=== PATIENT | male | born 1990 | race Caucasian/White ===

== ENCOUNTER 2017-11-17 02:18 | Emergency (ER) | payer SELFPAY ==
[2017-11-17] MEDS ORDERED: NA CHLORIDE 0.9% 1,000 ML ONE (02:38)
[2017-11-17] MEDS ORDERED: KETOROLAC 30 MG/ML INJ ONE (02:38)
[2017-11-17] MEDS ORDERED: ONDANSETRON 4 MG/2 ML VIAL ONE (02:38)
[2017-11-17 02:48] LABS: Absolute Lymphocytes (CBC) 2.4 K/uL (0.7-4.9); Absolute Monocytes 0.6 K/uL (0.1-1.3); Absolute Neutrophil 3.2 K/uL (1.8-8.0); Basophils % 0.7 % (0-1.3); Eosinophils % 2.9 % (0-4.4); Hematocrit 46.2 % (39.6-49.0); Lymphocytes % 37.2 % (15.3-44.8); MCH 31.2 pg (27.0-35.0); MCV 91.2 fL (80-100); MPV 8.4 fL (7.6-11.3); Monocytes % 9.9 % (3.3-12.3); RBC Red Blood Cell Count 5.07 M/uL (4.33-5.43)
[2017-11-17 02:52] LABS: Bicarbonate 25 mEq/L (21-31); Glucose Level 112 mg/dL (65-120); Lipase 27 U/L (22-51); Potassium 3.9 mEq/L (3.6-5.0); Sodium Level 136 mEq/L (135-145)
[2017-11-17 02:58] LABS: ALT/SGPT 11 IU/L (10-60); AST/SGOT 16 IU/L (10-42); Albumin 3.9 g/dL (3.2-5.5); Alkaline Phosphatase 69 IU/L (42-121); Amylase Level 46 U/L (28-100); BUN Blood Urea Nitrogen 18 mg/dL (6-20); Bilirubin Direct 0.1 mg/dL (0-0.2); Bilirubin Total 0.7 mg/dL (0.3-1.2)
--- NOTE | 2017-11-17 06:56 | EDPHYS ---
Physician Documentation [facility] Name: Ron Wilson Age: 27 yrs Sex: Male : 1990 Arrival Date: 11/17/2017 Time: 02:19 Bed 17 Private MD: ED Physician Jose Enriquez HPI: 11/17 02:41 This 27 yrs old Male presents to ER via Unassigned with complaints of Flank tw4 Pain. 02:41 The patient complains of pain in the right low back. The pain radiates to the right tw4 lower quadrant. Onset: The symptoms/episode began/occurred last night. Modifying factors: The symptoms are alleviated by nothing. the symptoms are aggravated by movement. Associated signs and symptoms: Pertinent positives: nausea. Severity of pain: At its worst the pain was moderate in the emergency department the pain is unchanged. The patient has experienced a previous episode. Historical: - Allergies: 02:42 NKA; tl2 - Home Meds: 02:42 None [Active]; tl2 - PMHx: 02:42 Back pain; Hypertension; tl2 - Immunization history:: Adult Immunizations up to date. - Social history:: Smoking status: Patient uses tobacco products, smokes one-half pack cigarettes per day. - Ebola Screening: : No symptoms or risks identified at this time. ROS: 02:41 Constitutional: Negative for fever, chills, and weight loss, Cardiovascular: Negative tw4 for chest pain, palpitations, and edema, Respiratory: Negative for shortness of breath, cough, wheezing, and pleuritic chest pain, Abdomen/GI: Negative for abdominal pain, nausea, vomiting, diarrhea, and constipation. 02:41 MS/Extremity: Negative for injury and deformity, Skin: Negative for injury, rash, and discoloration, Neuro: Negative for headache, weakness, numbness, tingling, and seizure. 02:41 Back: Positive for flank pain, on the right, radiated pain. Exam: 02:41 Constitutional: This is a well developed, well nourished patient who is awake, alert, tw4 and in no acute distress. Head/Face: Normocephalic, atraumatic. Chest/axilla: Normal chest wall appearance and motion. Nontender with no deformity. No lesions are appreciated. Cardiovascular: Regular rate and rhythm with a normal S1 and S2. No gallops, murmurs, or rubs. Normal PMI, no JVD. No pulse deficits. Respiratory: Lungs have equal breath sounds bilaterally, clear to auscultation and percussion. No rales, rhonchi or wheezes noted. No increased work of breathing, no retractions or nasal flaring. Abdomen/GI: Soft, non-tender, with normal bowel sounds. No distension or tympany. No guarding or rebound. No evidence of tenderness throughout. MS/ Extremity: Pulses equal, no cyanosis. Neurovascular intact. Full, normal range of motion. Neuro: Awake and alert, GCS 15, oriented to person, place, time, and situation. Cranial nerves II-XII grossly intact. Motor strength 5/5 in all extremities. Sensory grossly intact. Cerebellar exam normal. Normal gait. Vital Signs: 02:42 BP 152 / 100; Pulse 70; Resp 20; Temp 97.5(O); Pulse Ox 97% on R/A; Weight 83.91 kg; tl2 Height 6 ft. 0 in. (182.88 cm); Pain 10/10; 04:12 BP 128 / 77; Pulse 60; Resp 18; Pulse Ox 98% on R/A; Pain 0/10; ea 04:50 BP 128 / 71; Pulse 70; Resp 17; Pulse Ox 98% on R/A; mw2 06:52 BP 113 / 80; Pulse 79; Resp 17; Pulse Ox 99% on R/A; mw2 02:42 Body Mass Index 25.09 (83.91 kg, 182.88 cm) tl2 MDM: 02:20 Patient medically screened. tw4 07:45 Differential diagnosis: nephrolithiasis, pyelonephritis. Data reviewed: vital signs, tw4 nurses notes. Counseling: I had a detailed discussion with the patient and/or guardian regarding: the historical points, exam findings, and any diagnostic results supporting the discharge/admit diagnosis. Medication response: Toradol relieved patient's pain. The symptoms have resolved. Response to treatment: the patient's symptoms have markedly improved after treatment. Special discussion: I discussed with the patient/guardian in detail that at this point there is no indication for admission to the hospital. It is understood, however, that if the symptoms persist or worsen the patient needs to return immediately for re-evaluation. ED course: Pt states he felt better after receiving Toradol. CT reveals 3 mm renal calculus with mild hydronephrosis. Will send pt home with po pain meds. Pt instructed to follow up as needed. 11/17 02:21 Order name: Amylase, Serum 11/17 02:21 Order name: Basic Metabolic Panel 11/17 02:21 Order name: CBC with Diff; Complete Time: 05:39 tw4 11/17 05:39 Interpretation: Normal except: RDW 11.8. 11/17 02:21 Order name: Creatinine for Radiology; Complete Time: 05:39 tw4 11/17 02:21 Order name: Hepatic Function; Complete Time: 05:39 tw4 11/17 05:39 Interpretation: Normal except: GLOB 2.1; A/G 1.9. 11/17 02:21 Order name: Lipase; Complete Time: 05:39 tw4 11/17 02:21 Order name: IV Saline Lock; Complete Time: 02:33 tw4 11/17 02:21 Order name: Labs collected and sent; Complete Time: 02:34 tw4 11/17 02:21 Order name: Amylase Level; Complete Time: 05:39 EDMS 11/17 05:39 Interpretation: Within normal limits: JUAN 46. 11/17 02:21 Order name: Basic Metabolic Panel; Complete Time: 05:39 EDMS 11/17 05:40 Interpretation: Abnormal. 11/17 02:44 Order name: CT Stone Protocol tw4 Administered Medications: 02:48 Drug: NS 0.9% 1000 ml Route: IV; Rate: 1 bolus; Site: right antecubital; tl2 07:04 Follow up: Response: No adverse reaction; IV Status: Completed infusion; IV Intake: ea 1000ml 02:48 Drug: TORadol 30 mg Route: IVP; Site: right antecubital; tl2 03:50 Follow up: Response: No adverse reaction; Pain is decreased ea Disposition: 11/17/17 06:55 Discharged to Home. Impression: Calculus of lower urinary tract, unspecified. - Condition is Stable. - Discharge Instructions: Kidney Stones, [id number]. - Prescriptions for Ibuprofen 800 mg Oral Tablet - take 1 tablet by ORAL route every 8 hours As needed take with food; 30 tablet. Tylenol- Codeine #3 300-30 mg Oral Tablet - take 2 tablet by ORAL route every 6 hours As needed; 6 tablet. - Medication Reconciliation Form, Thank You Letter, Antibiotic Education, Prescription Opioid Use form. - Follow up: Private Physician; When: As needed; Reason: Recheck today's complaints, Continuance of care, Re-evaluation by your physician. Follow up: Callum Alas MD; When: As needed; Reason: Recheck today's complaints, Continuance of care, Re-evaluation by your physician. - Problem is new. - Symptoms have improved. Signatures: Dispatcher [employer] EDMS John Gongora, CRANE FOLLOWER CRANE FOLLOWER em Desi Oates RN RN tl2 Jose Enriquez MD MD tw4 Fiona Agrawal RN ea Corrections: (The following items were deleted from the chart) 05:40 05:40 Within normal limits. tw4 tw4 06:56 06:55 11/17/2017 06:55 Discharged to Home. Impression: Calculus of lower urinary tract, tw4 unspecified. Condition is Stable. Forms are Medication Reconciliation Form, Thank You Letter, Antibiotic Education, Prescription Opioid Use. Follow up: Private Physician; When: As needed; Reason: Recheck today's complaints, Continuance of care, Re-evaluation by your physician. Problem is new. Symptoms have improved. tw4 07:20 02:21 Urine Dipstick-Ancillary ordered. tw4 em 07:21 06:56 11/17/2017 06:55 Discharged to Home. Impression: Calculus of lower urinary tract, em unspecified. Condition is Stable. Discharge Instructions: Kidney Stones, [id number]-[id number]. Prescriptions for Ibuprofen 800 mg Oral Tablet - take 1 tablet by ORAL route every 8 hours As needed take with food; 30 tablet, Tylenol-Codeine #3 300-30 mg Oral Tablet - take 2 tablet by ORAL route every 6 hours As needed; 6 tablet. and Forms are Medication Reconciliation Form, Thank You Letter, Antibiotic Education, Prescription Opioid Use. Follow up: Private Physician; When: As needed; Reason: Recheck today's complaints, Continuance of care, Re-evaluation by your physician. Follow up: Callum Alas; When: As needed; Reason: Recheck today's complaints, Continuance of care, Re-evaluation by your physician. Problem is new. Symptoms have improved. tw4
--- NOTE | 2017-11-17 06:56 | ER ---
Nurse's Notes [facility] Name: Ron Wilson Age: 27 yrs Sex: Male : 1990 Arrival Date: 11/17/2017 Time: 02:19 Bed 17 Private MD: Diagnosis: Calculus of lower urinary tract, unspecified Presentation: 11/17 02:41 Presenting complaint: Patient states: right flank pain that radiates to lower abdomen tl2 since yesterday. Pt states pain went away this afternoon but came back suddenly around 8 PM. Denies any pain when urinating. Transition of care: patient was not received from another setting of care. Onset of symptoms was November 16, 2017. Risk Assessment: Do you want to hurt yourself or someone else? Patient reports no desire to harm self or others. Initial Sepsis Screen: Does the patient meet any 2 criteria? No. Patient's initial sepsis screen is negative. Does the patient have a suspected source of infection? No. Patient's initial sepsis screen is negative. Care prior to arrival: None. 02:41 Method Of Arrival: Ambulatory tl2 02:41 Acuity: JENNY 3 tl2 Triage Assessment: 02:42 General: Appears in no apparent distress. uncomfortable, Behavior is cooperative, tl2 appropriate for age, anxious, restless. Pain: Complains of pain in right flank Pain radiates to abdomen Pain currently is 10 out of 10 on a pain scale. Quality of pain is described as sharp. Neuro: Level of Consciousness is awake, alert, obeys commands, Oriented to person, place, time, situation. Cardiovascular: Denies chest pain. Respiratory: Airway is patent Respiratory effort is even, unlabored, Respiratory pattern is regular, symmetrical. GI: Reports nausea. : Reports. Derm: Skin is pink, warm \T\ dry. Historical: - Allergies: 02:42 NKA; tl2 - Home Meds: 02:42 None [Active]; tl2 - PMHx: 02:42 Back pain; Hypertension; tl2 - Immunization history:: Adult Immunizations up to date. - Social history:: Smoking status: Patient uses tobacco products, smokes one-half pack cigarettes per day. - Ebola Screening: : No symptoms or risks identified at this time. Screenin:47 Abuse screen: Denies threats or abuse. Nutritional screening: No deficits noted. tl2 Tuberculosis screening: No symptoms or risk factors identified. Fall Risk None identified. Assessment: 02:47 General: see triage assessment. tl2 03:50 Reassessment: Patient and/or family updated on plan of care and expected duration. Pain ea level reassessed. Pt resting with eyes closed, respirations even and unlabored. Chest expansions even and symmetrical. No s/s of pain or discomfort noted at this time. Mother reports she has to leave for a few minutes, Irina Wilson [phone]. 04:50 Reassessment: Patient and/or family updated on plan of care and expected duration. Pain ea level reassessed. pt resting with eyes closed, respirations even and unlabored, chest expansions even and symmetrical. No s/s of pain or discomfort noted at this time. 05:50 Reassessment: pt resting with eyes closed respirations even and unlabored chest ea expansions even and symmetrical. No s/s of pain or discomfort noted at this time. 06:55 Reassessment: Patient and/or family updated on plan of care and expected duration. Pain ea level reassessed. Patient is alert, oriented x 3, equal unlabored respirations, skin warm/dry/pink. Patient states feeling better. Patient states symptoms have improved. Vital Signs: 02:42 BP 152 / 100; Pulse 70; Resp 20; Temp 97.5(O); Pulse Ox 97% on R/A; Weight 83.91 kg; tl2 Height 6 ft. 0 in. (182.88 cm); Pain 10/10; 04:12 BP 128 / 77; Pulse 60; Resp 18; Pulse Ox 98% on R/A; Pain 0/10; ea 04:50 BP 128 / 71; Pulse 70; Resp 17; Pulse Ox 98% on R/A; mw2 06:52 BP 113 / 80; Pulse 79; Resp 17; Pulse Ox 99% on R/A; mw2 02:42 Body Mass Index 25.09 (83.91 kg, 182.88 cm) tl2 ED Course: 02:19 Patient arrived in ED. am2 02:20 Jose nEriquez MD is Attending Physician. tw4 02:42 Triage completed. tl2 02:42 Arm band placed on right wrist. tl2 02:47 Patient has correct armband on for positive identification. Placed in gown. Bed in low tl2 position. Call light in reach. Side rails up X 1. Adult w/ patient. 02:47 No provider procedures requiring assistance completed. Inserted saline lock: 20 gauge tl2 in right antecubital area, using aseptic technique. Blood collected. 02:[address] via wheelchair. kw1 03:07 CT Stone Protocol In Process Unspecified. EDMS 03:07 CT completed. Patient tolerated procedure well. Patient moved back from [place]. kw1 04:09 Fiona Agrawal, RN is Primary Nurse. ea 06:56 Callum Alas MD is Referral Physician. tw4 07:20 IV discontinued, intact, bleeding controlled, No redness/swelling at site. Pressure em dressing applied. Administered Medications: 02:48 Drug: NS 0.9% 1000 ml Route: IV; Rate: 1 bolus; Site: right antecubital; tl2 07:04 Follow up: Response: No adverse reaction; IV Status: Completed infusion; IV Intake: ea 1000ml 02:48 Drug: TORadol 30 mg Route: IVP; Site: right antecubital; tl2 03:50 Follow up: Response: No adverse reaction; Pain is decreased ea Intake: 07:04 IV: 1000ml; Total: 1000ml. ea Outcome: 06:55 Discharge ordered by . tw4 06:58 Condition: improved ea 07:20 Discharged to home ambulatory. em 07:20 Condition: good 07:20 Discharge instructions given to patient, Instructed on discharge instructions, follow up and referral plans. no drinking with medication, no driving heavy equipment, medication usage, Demonstrated understanding of instructions, follow-up care, medications, Prescriptions given X 2. 07:21 Patient left the ED. em Signatures: Dispatcher [employer] EDAZ John Gongora, COMPUTER SCIENTIST COMPUTER SCIENTIST em Desi Oates RN RN tl2 Cady Walters am2 Fiona Agrawal RN RN ea Wilhelm, Kimberly kw1 Jose Enriquez MD MD tw4 Liv Pedroza mw2 Corrections: (The following items were deleted from the chart) 04:14 03:50 Reassessment: Patient and/or family updated on plan of care and expected ea duration. Pain level reassessed. Pt resting with eyes closed, respirations even and unlabored. Chest expansions even and symmetrical. No s/s of pain or discomfort noted at this time. ea
[2017-11-17 07:25] VITALS: TEMP 97.5
[2017-11-17 07:28] VITALS: BP 113/80; O2SAT 99
--- NOTE | 2017-11-17 08:49 | RAD REPORT ---
EXAM DESCRIPTION: CT - Stone Protocol - 11/17/2017 7:36 am CLINICAL HISTORY: Abdominal pain, flank pain A preliminary written report was provided at the time of the study, and the report was reviewed prio r to final dictation. COMPARISON: None. TECHNIQUE: Axial 5 mm thick images were obtained without oral or IV contrast. The [id number] span s the entirety of the system including uppermost abdomen and lung bases. All CT scans are performed using dose optimization technique as appropriate and may include automated exposure control or mA/KV adjustment according to patient size. FINDINGS: Mild right-sided hydronephrosis is present secondary to a 3 millimeter distal right ureter al calculus. This is approximately 3 cm from the UVJ. No left-sided hydronephrosis. No other obstruct ing or nonobstructing calculi. Right kidney is minimally edematous. No suspicious renal masses. Isode nse masses and pyelonephritis are not excluded on a stone protocol CT scan. Partially filled urinary bladder shows no suspicious finding. Prostate calcifications are present. No seminal vesicle abnormal ity. Imaged portions of the liver, spleen and pancreas show no suspicious findings on non-contrast imaging . Gallbladder is contracted. No biliary tree dilatation. No significant adrenal finding. Large amount of food fills the stomach. No acute stomach finding. No acute large or small bowel findi ng. No hernia, mass or bulky lymphadenopathy noted. No free air, free fluid or inflammatory stranding. Bilateral gynecomastia is present. Calcified granuloma seen in the lower lung jean baptiste. The lumbar spin e shows fusion hardware spanning L2-L4. Old L3 burst fracture noted. No active process. IMPRESSION: Mild right-sided hydronephrosis secondary to a 3 mm distal right ureteral calculus appro ximately 3 cm from the UVJ. Additional nonacute findings detailed in the body of the report. Isodense masses and pyelonephritis are not excluded on stone protocol technique.
== END 2017-11-17 07:21 | disposition home or self-care (01) ==
LOC: ER 02:18
DX: N21.9 Calculus of lower urinary tract, unspecified (principal); I10 Essential (primary) hypertension; F17.210 Nicotine dependence, cigarettes, uncomplicated
CPT/HCPCS: 36415; 74176; 76377; 80048; 80076; 82150; 83690; 85025; 96361; 96374; 99284; J2405; J7030

== ENCOUNTER 2019-04-06 19:02 | Emergency (ER) | payer SELFPAY ==
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
--- NOTE | 2019-04-06 20:56 | RAD REPORT ---
EXAM DESCRIPTION: RAD - Lumbar Spine 3 Views - 04/06/2019 8:24 pm CLINICAL HISTORY: Back pain, history of lumbar fracture repair COMPARISON: CT imaging November 2017 FINDINGS: A three-view lumbar spine examination was performed. Approximately 40% old compression fra cture of the L3 body is noted. Pedicle screws and rods are in place in the L2 and L4 bodies spanning the fracture. No change to the fracture hardware since November 2017. No new L3 vertebral body finding se en. Remaining lumbar bodies are normal in height. No alignment changes. Slight left convex curvature of the lumbar spine is present similar to prior imaging. No new fracture change. No new or progressiv e disc space narrowing. No pars defects identified. IMPRESSION: Old L3 fracture with fixation hardware in place. No acute lumbar spine finding.
[2019-04-06] MEDS ORDERED: dexAMETHasone 10 MG/ML VIAL ONE (21:26)
[2019-04-06] MEDS ORDERED: KETOROLAC 30 MG/ML INJ ONE (21:26)
[2019-04-06 22:16] VITALS: BP 138/88; O2SAT 97
== END 2019-04-06 22:12 | disposition home or self-care (01) ==
LOC: ER 19:02
DX: M54.5 Low back pain (principal); I10 Essential (primary) hypertension; E10.9 Type 1 diabetes mellitus without complications; Z72.0 Tobacco use
CPT/HCPCS: 72100; 96372; 99284; J1100

== ENCOUNTER 2019-04-07 11:29 | Emergency (ER) | payer SELFPAY ==
[2019-04-07] MEDS ORDERED: HYDROCODONE/APAP 10/325 TAB ONE (12:42)
--- NOTE | 2019-04-07 13:15 | RAD REPORT ---
EXAM DESCRIPTION: CTSpine Lumbar Wo Con04/07/2019 12:54 pm CLINICAL HISTORY: Back injury with back pain. Lumbar fracture COMPARISON: 2018 TECHNIQUE: Computed axial tomography lumbar spine was obtained with coronal and sagittal reconstruct ion. All CT scans are performed using dose optimization technique as appropriate and may include automated exposure control or mA/KV adjustment according to patient size. FINDINGS: Pedicular screws united by rods have Been placed from L2-L4. A moderate old compression fracture involves the L3 vertebral body which is without significant mathews e from 2018 exam. Minimal anterior subluxation of L2 on L3 is unchanged. Artifact from the hardware obscures evaluation of portions of the lumbar spine. Spondylosis L2-3 results in borderline narrowing of the thecal sac Spondylosis L3-4 results in narrowing of the thecal sac to 9 millimeters. Small left lateral disc her niation. Moderate narrowing left neural foramina Mild posterior subluxation L4 on L5. Disc bulge and osteophytes L5-S1. Thecal sac measures 11 millimeters IMPRESSION: Moderate old compression fracture involves the L3 vertebral body Pedicular screws united by rods have been placed from L2 and L4 Spondylosis L3-4 with small left lateral disc herniation resulting in mild central spinal stenosis an d moderate left foraminal stenosis
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
--- NOTE | 2019-04-07 15:29 | EDPHYS ---
Physician Documentation [facility] Name: Ron Wilson Age: 28 yrs Sex: Male : 1990 Arrival Date: 04/07/2019 Time: 11:33 Bed 17 Private MD: ED Physician Rafat Johnson HPI: 04/07 13:43 This 28 yrs old Male presents to ER via [employer] with complaints of gs Back Pain. 13:43 The patient presents with pain that is chronic. The symptoms are located in the low gs back. Onset: The symptoms/episode began/occurred 5 day(s) ago, and became worse. The pain radiates to the lateral aspect of right thigh. Associated signs and symptoms: Pertinent positives: tingling. Modifying factors: the patient symptoms are aggravated by any movement. Severity of symptoms: At their worst the symptoms were severe, in the emergency department the symptoms are unchanged. The patient has experienced similar episodes in the past, multiple times. Historical: - Allergies: 11:43 NKA; ss - Home Meds: 11:43 Tylenol #3 Oral [Active]; ss - PMHx: 11:43 Back pain; Hypertension; ss - PSHx: 11:43 back sx; ss - Immunization history:: Adult Immunizations up to date. - Social history:: Smoking status: Patient uses tobacco products, smokes one-half pack cigarettes per day. - Ebola Screening: : Patient denies exposure to infectious person Patient denies travel to an Ebola-affected area in the 21 days before illness onset. ROS: 13:43 All other systems are negative. gs Exam: 13:43 Constitutional: The patient appears alert, awake. gs 15:21 Head/Face: Normocephalic, atraumatic. Eyes: Pupils equal round and reactive to light, gs extra-ocular motions intact. Lids and lashes normal. Conjunctiva and sclera are non-icteric and not injected. Cornea within normal limits. Periorbital areas with no swelling, redness, or edema. ENT: Nares patent. No nasal discharge, no septal abnormalities noted. Tympanic membranes are normal and external auditory canals are clear. Oropharynx with no redness, swelling, or masses, exudates, or evidence of obstruction, uvula midline. Mucous membranes moist. Neck: Trachea midline, no thyromegaly or masses palpated, and no cervical lymphadenopathy. Supple, full range of motion without nuchal rigidity, or vertebral point tenderness. No Meningismus. Chest/axilla: Normal chest wall appearance and motion. Nontender with no deformity. No lesions are appreciated. Cardiovascular: Regular rate and rhythm with a normal S1 and S2. No gallops, murmurs, or rubs. Normal PMI, no JVD. No pulse deficits. Respiratory: Lungs have equal breath sounds bilaterally, clear to auscultation and percussion. No rales, rhonchi or wheezes noted. No increased work of breathing, no retractions or nasal flaring. Abdomen/GI: Soft, non-tender, with normal bowel sounds. No distension or tympany. No guarding or rebound. No evidence of tenderness throughout. Back: No spinal tenderness. No costovertebral tenderness. Full range of motion. Skin: Warm, dry with normal turgor. Normal color with no rashes, no lesions, and no evidence of cellulitis. MS/ Extremity: Pulses equal, no cyanosis. Neurovascular intact. Full, normal range of motion. 15:21 Neuro: Orientation: is normal, Mentation: is normal, Memory: is normal, Cranial nerves: CN II- XII are normal as tested, Cerebellar function: no acute changes, Motor: strength is 4/5 in the right leg and left leg, Sensation: pin prick testing is normal. Vital Signs: 11:38 BP 119 / 82; Pulse 92; Resp 16; Temp 97.5(TE); Pulse Ox 98% on R/A; Weight 82.55 kg; ss Height 5 ft. 11 in. (180.34 cm); Pain 7/10; 14:52 BP 135 / 83; Pulse 102; Resp 17; Temp 97.7(O); Pulse Ox 96% ; mh5 11:38 Body Mass Index 25.38 (82.55 kg, 180.34 cm) MDM: 12:03 Patient medically screened. gs 15:21 Differential diagnosis: chronic back pain, Ligament Injury ruptured disc, spinal gs injury. Data reviewed: vital signs, nurses notes. Response to treatment: the patient's symptoms have worsened after treatment, says has lost feeling in legs, lost sharp touch on exam will transfer. 04/07 12:36 Order name: CT Lumbar Spine Wo Con; Complete Time: 13:19 gs Administered Medications: 12:45 Drug: [place] 10 mg-325 mg 1 tabs Route: PO; em 13:57 Follow up: Response: No adverse reaction; Pain is unchanged, physician notified em Disposition: 04/07/19 15:28 Transfer ordered to [facility]. Diagnosis is Cauda equina syndrome. - Reason for transfer: Higher level of care. - Accepting physician is poncho. - Condition is Stable. - Problem is new. - Symptoms are unchanged. Signatures: Dispatcher [employer] EDWV John Gongora, FLEXBOARD OPERATOR FLEXBOARD OPERATOR em Janet Anderson RN RN ss Rafat Johnson MD MD gs Corrections: (The following items were deleted from the chart) 17:22 15:28 04/07/2019 15:28 Transfer ordered to [facility]. Diagnosis is Cauda equina em syndrome. Reason for transfer: Higher level of care. Accepting physician is hayesvillegaby. Condition is Stable. Problem is new. Symptoms are unchanged.
[2019-04-07 17:31] VITALS: BP 135/83; TEMP 97.7; O2SAT 96
== END 2019-04-07 17:22 | disposition short-term general hospital (02) ==
LOC: ER 11:29
DX: G83.4 Cauda equina syndrome (principal); I10 Essential (primary) hypertension; F17.210 Nicotine dependence, cigarettes, uncomplicated
CPT/HCPCS: 72131; 99285

== ENCOUNTER 2019-09-02 11:23 | Emergency (ER) | payer SELFPAY ==
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
--- OUTSIDE RECORDS SUMMARY | 2019-09-02 11:26 | XMS REPORT ---
:1990 [facility] Address [address] [place] [address] Care Team Providers Name Role Phone Unavailable Unavailable Unavailable Problems This patient has no known problems. Allergies, Adverse Reactions, Alerts This patient has no known allergies or adverse reactions. Medications This patient has no known medications.
[2019-09-02] MEDS ORDERED: MORPHINE 2 MG/ML SYR ONE (12:14)
[2019-09-02] MEDS ORDERED: ASPIRIN 81 MG CHEWABLE TABLET ONE (12:14)
--- NOTE | 2019-09-02 12:28 | RAD REPORT ---
EXAM DESCRIPTION: RAD - Chest Single View - 09/02/2019 12:17 pm CLINICAL HISTORY: CHEST PAIN, left side COMPARISON: None TECHNIQUE: AP portable chest image was obtained 09/02/2019 12:17 pm . FINDINGS: No suspicious peripheral mass or consolidation. Small granuloma seen lateral right lung ba se. Interstitial pattern is minimally prominent with the baseline the patient unknown. In this settin g, a minimal interstitial edema or infiltrate pattern could be present. No hilar abnormality seen. He art and vasculature are normal. No measurable pleural effusion and no pneumothorax. No acute bony abn ormality seen. No acute aortic findings suspected. IMPRESSION: No focal mass or consolidation. Interstitial pattern is mildly prominent on this baseline study. This can be baseline for the patient or a mild interstitial edema or infiltrate.
[2019-09-02 12:54] LABS: Absolute Lymphocytes (CBC) 1.6 K/uL (0.7-4.9); Basophils % 0.7 % (0-1.3); Hematocrit 48.9 % (39.6-49.0); Lymphocytes % 30.3 % (15.3-44.8); MPV 8.6 fL (7.6-11.3); Protime INR 1.02; RBC Red Blood Cell Count 5.38 M/uL (4.33-5.43)
[2019-09-02 13:41] LABS: ALT/SGPT 23 U/L (12-78); AST/SGOT 19 U/L (15-37); Albumin 3.7 g/dL (3.4-5.0); Alkaline Phosphatase 70 U/L (45-117); BUN Blood Urea Nitrogen 11 mg/dL (7-18); Bicarbonate 27 mmol/L (21-32); Bilirubin Direct 0.2 mg/dL (0-0.2); Bilirubin Total 0.7 mg/dL (0.2-1.0); Glucose Level 84 mg/dL (74-106); Magnesium 2.2 mg/dL (1.8-2.4); NT PRO-BNP 11 pg/mL (<125); Potassium 3.9 mmol/L (3.5-5.1); Sodium Level 140 mmol/L (136-145); Troponin (Emerg Dept Use Only) < 0.02 ng/mL (0.0-0.045)
--- NOTE | 2019-09-02 14:10 | EKG ---
Test Date: 2019-09-02 Test Time: 11:56:36 Hair Preparer: GOOD MEASUREMENT RESULTS: Intervals: Rate: 101 OR: 130 QRSD: 90 QT: 328 QTc: 425 Rippey: P: 61 OR: 130 QRS: 69 T: 47 INTERPRETIVE STATEMENTS: Sinus tachycardia Otherwise normal ECG Compared to ECG 05/14/2015 20:43:11 Sinus rhythm no longer present Sinus arrhythmia no longer present Electronically Signed On 09-02-19 14:10:09 CDT by Wilian Mckoy
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
[2019-09-02] MEDS ORDERED: NA CHLORIDE 0.9% 1,000 ML ONE (15:05)
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
--- NOTE | 2019-09-02 15:48 | EDPHYS ---
Physician Documentation [facility] Name: Ron Wilson Age: 28 yrs Sex: Male : 1990 Arrival Date: 09/02/2019 Time: 11:25 Bed 20 Private MD: ED Physician John Hall HPI: 09/01 12:00 This 28 yrs old Male presents to ER via Ambulatory with complaints of Chest cp Pain, Back Pain. 12:00 The patient or guardian reports chest pain that is located primarily in the anterior cp chest wall, left. The pain does not radiate. 12:00 Associated signs and symptoms: Pertinent negatives: abdominal pain, diaphoresis, cp dizziness, lower extremity swelling, lightheadedness, shortness of breath, syncope. The chest pain is described as a pressure. 12:00 Duration: The patient or guardian reports multiple episodes, that are intermittent, cp with no pattern. 12:03 Patient also c/o lower back pain and reports history of chronic back pain since cp sustaining lumbar fracture that required lumbar fusion. Patient reports pain in different location of lower back. Denies change in bowel or bladder function, denies change in paresthesias of right calf area, denies saddle anesthesia, denies weakness of lower extremities. Historical: - Allergies: 11:51 NKA; ca1 - Home Meds: 11:51 unknown BP med [Active]; ca1 - PMHx: 11:51 Back pain; Hypertension; juvenile DM; ca1 - PSHx: 11:51 back sx; ca1 - Immunization history:: Adult Immunizations up to date, Flu vaccine is up to date. - Social history:: Smoking status: Patient reports the use of cigarette tobacco products, smokes one-half pack cigarettes per day. ROS: 12:07 Constitutional: Negative for body aches, chills, fever, poor PO intake. cp 12:07 Eyes: Negative for injury, pain, redness, and discharge. cp 12:07 ENT: Negative for drainage from ear(s), ear pain, sore throat, difficulty swallowing, difficulty handling secretions. 12:07 Cardiovascular: Positive for chest pain, of the anterior aspect of left upper chest, Negative for edema, palpitations. 12:07 Respiratory: Negative for cough, shortness of breath, wheezing. 12:07 Abdomen/GI: Negative for abdominal pain, nausea, vomiting, and diarrhea, constipation, black/tarry stool, rectal bleeding, change in bowel habits. 12:07 Back: Positive for pain at rest, pain with movement, of the right low back, Negative for injury or acute deformity. 12:07 : Negative for urinary symptoms, difficulty urinating, bladder incontinence, testicular pain 12:07 Neuro: Negative for change in paresthesias of right leg. 12:07 All other systems are negative. Exam: 12:05 ECG was reviewed by the Attending Physician. cp 12:10 Constitutional: The patient appears in no acute distress, alert, awake, cp non-diaphoretic, non-toxic, well developed, well nourished. 12:10 Head/Face: Normocephalic, atraumatic. cp 12:10 Eyes: Periorbital structures: appear normal, Conjunctiva: normal, no exudate, no injection, Lids and lashes: appear normal, bilaterally. 12:10 ENT: External ear(s): are unremarkable, Nose: is normal, Mouth: is normal, Posterior pharynx: is normal, airway is patent, no erythema, no exudate. 12:10 Neck: ROM/movement: is normal, is supple, without pain, no range of motions limitations. 12:10 Chest/axilla: Inspection: normal, Palpation: is normal, no crepitus, no tenderness. 12:10 Cardiovascular: Rate: tachycardic, Rhythm: regular, Heart sounds: murmur, not appreciated, Edema: is not appreciated, JVD: is not appreciated. 12:10 Respiratory: the patient does not display signs of respiratory distress, Respirations: normal, no use of accessory muscles, no retractions, labored breathing, is not present, Breath sounds: are clear throughout, no decreased breath sounds, no wheezing. 12:10 Abdomen/GI: Inspection: abdomen appears normal, Bowel sounds: active, all quadrants, Palpation: abdomen is soft and non-tender, in all quadrants, rebound tenderness, is not appreciated, voluntary guarding, is not appreciated, involuntary guarding, is not appreciated. 12:10 Back: pain, that is moderate, of the right low back, ROM is normal, Straight leg raises: of both lower extremities does not illicit pain. 12:10 Skin: no rash present. 12:10 Neuro: Orientation: is normal, Mentation: is normal, Motor: no acute changes, moves all fours, Sensation: no acute changes, Deep tendon reflexes are 1 (trace) + in the right patellar, right Achilles, left patellar and left Achilles. Vital Signs: 11:46 BP 142 / 88; Pulse 105; Resp 16 S; Temp 98(O); Pulse Ox 100% on R/A; Weight 92.99 kg ca1 (R); Height 5 ft. 11 in. (180.34 cm) (R); Pain 7/10; 12:55 BP 143 / 90; Pulse 88; Resp 18 S; Pulse Ox 100% on R/A; ca1 13:50 BP 155 / 93; Pulse 103; Resp 19 S; Pulse Ox 100% on R/A; ca1 14:57 BP 136 / 96; Pulse 86; Resp 16 S; Pulse Ox 99% on R/A; ca1 16:00 BP 147 / 96; Pulse 97; Resp 20 S; Pulse Ox 100% on R/A; ca1 11:46 Body Mass Index 28.59 (92.99 kg, 180.34 cm) ca1 MDM: 11:45 Patient medically screened. cp 12:30 Differential diagnosis: abnormal EKG, acute myocardial infarction, acute pericarditis, cp chest wall pain, costochondritis, pancreatitis, pneumonia, pneumothorax, pulmonary embolus. 15:45 Data reviewed: vital signs, nurses notes, lab test result(s), EKG, radiologic studies, cp CT scan, plain films. 15:45 Test interpretation: by ED physician or midlevel provider: ECG, plain radiologic cp studies. Counseling: I had a detailed discussion with the patient and/or guardian regarding: the historical points, exam findings, and any diagnostic results supporting the discharge/admit diagnosis, lab results, radiology results, the need for outpatient follow up, a family practitioner, to return to the emergency department if symptoms worsen or persist or if there are any questions or concerns that arise at home. 09/01 12:00 Order name: Basic Metabolic Panel; Complete Time: 13:58 cp 09/01 13:58 Interpretation: Normal except: CL 108; CA 8.3. cp 09/01 12:00 Order name: CBC with Diff; Complete Time: 13:58 cp 09/01 12:00 Order name: LFT's; Complete Time: 13:58 cp 09/01 12:00 Order name: Magnesium; Complete Time: 13:58 cp 09/01 12:00 Order name: NT PRO-BNP; Complete Time: 13:58 cp 09/01 12:00 Order name: PT-INR; Complete Time: 13:58 cp 09/01 12:00 Order name: Troponin (emerg Dept Use Only); Complete Time: 13:58 cp 09/01 12:00 Order name: XRAY Chest (1 view); Complete Time: 13:58 cp 09/01 13:59 Order name: CT Stone Protocol; Complete Time: 15:15 cp 09/01 12:00 Order name: EKG; Complete Time: 12:01 cp 09/01 12:00 Order name: Cardiac monitoring; Complete Time: 12:08 cp 09/01 12:00 Order name: EKG - Nurse/Tech; Complete Time: 12:08 cp 09/01 12:00 Order name: IV Saline Lock; Complete Time: 12:17 cp 09/01 12:00 Order name: Labs collected and sent; Complete Time: 12:08 cp 09/01 12:00 Order name: O2 Per Protocol; Complete Time: 12:08 cp 09/01 12:00 Order name: O2 Sat Monitoring; Complete Time: 12:08 cp 09/01 12:17 Order name: Labs - recollect needed; Complete Time: 12:31 bd EC:05 Rate is 101 beats/min. Rhythm is regular. MA interval is normal. QRS interval is cp normal. QT interval is normal. Interpreted by me. Reviewed by me. Administered Medications: 12:11 Drug: Aspirin Chewable Tablet 324 mg Route: PO; ca1 13:00 Follow up: Response: No adverse reaction ca1 12:31 Drug: morphine 2 mg {Note: rass - 0.} Route: IVP; Site: left antecubital; ca1 13:30 Follow up: Response: No adverse reaction; Pain is decreased; RASS: Alert and Calm (0) ca1 15:03 Drug: NS 0.9% 1000 ml Route: IV; Rate: 1 bolus; Site: left antecubital; ca1 16:00 Follow up: Response: No adverse reaction; IV Status: Completed infusion ca1 Disposition: 16:09 Co-signature as Attending Physician, John Hall MD. rn Disposition: 09/02/19 15:46 Discharged to Home. Impression: Chest pain, unspecified, Low back pain - chronic. - Condition is Stable. - Discharge Instructions: Back Pain, Adult, Nonspecific Chest Pain, Aspirin and Your Heart, Heat Therapy, Back Exercises. - Prescriptions for lidocaine 5 % Topical adhesive patch,medicated - apply 1 patch by TRANSDERMAL route once daily; 1 box. Cyclobenzaprine 10 mg Oral Tablet - take 1 tablet by ORAL route every 8 hours As needed; 30 tablet. Diclofenac Sodium 75 mg Oral Tablet, Delayed Release (E.C.) - take 1 tablet by ORAL route 2 times per day; 20 tablet. - Medication Reconciliation Form, Thank You Letter, Antibiotic Education, Prescription Opioid Use, Work release form form. - Follow up: Private Physician; When: 2 - 3 days; Reason: Recheck today's complaints. - Problem is new. - Symptoms have improved. Signatures: Dispatcher [employer] EDMS Benita Meyers Roman, MD MD rn Marcos Zamora PA PA cp Mikel, Toya, RN RN ca1 Corrections: (The following items were deleted from the chart) 13:58 13:58 Normal except: CL 108. cp cp 15:48 12:00 Urine Dipstick-Ancillary ordered. cp ca1 16:02 15:46 09/02/2019 15:46 Discharged to Home. Impression: Chest pain, unspecified; Low ca1 back pain - chronic. Condition is Stable. Forms are Medication Reconciliation Form, Thank You Letter, Antibiotic Education, Prescription Opioid Use. Follow up: Private Physician; When: 2 - 3 days; Reason: Recheck today's complaints. Problem is new. Symptoms have improved. cp 21:57 12:00 Duration: The patient or guardian reports a single episode, that is still cp ongoing, and unchanged, cp
[2019-09-02 16:17] VITALS: TEMP 98
[2019-09-02 16:22] VITALS: BP 136/96; O2SAT 99
== END 2019-09-02 16:02 | disposition home or self-care (01) ==
LOC: ER 11:23
DX: M54.5 Low back pain (principal); I10 Essential (primary) hypertension; F17.210 Nicotine dependence, cigarettes, uncomplicated
CPT/HCPCS: 36415; 71045; 74176; 76377; 80048; 80076; 83735; 83880; 84484; 85025; 85610; 93005; 96361; 96374; 99285; J2270; J7030

== ENCOUNTER 2020-01-17 13:31 | Emergency (ER) | payer SELFPAY ==
--- OUTSIDE RECORDS SUMMARY | 2020-01-17 13:33 | XMS REPORT | Continuity of Care Document ---
:1990 Author Organization [facility] t Address [address] [place] [address] Care Team Providers Name Role Phone Unavailable Unavailable Unavailable Problems This patient has no known problems. Allergies, Adverse Reactions, Alerts This patient has no known allergies or adverse reactions. Medications This patient has no known medications. Procedures This patient has no known procedures. Results This patient has no known results.
[2020-01-17] MEDS ORDERED: KETOROLAC 30 MG/ML INJ ONE (14:55)
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
--- NOTE | 2020-01-17 16:20 | EDPHYS ---
Physician Documentation [facility] Name: Ron Wilson Age: 29 yrs Sex: Male : 1990 Arrival Date: 01/17/2020 Time: 13:31 Bed 7 Private MD: ED Physician Marcos Jamil HPI: 01/16 14:13 This 29 yrs old Male presents to ER via EMS with complaints of Back Pain. charli 14:24 This 29 yrs old Male presents to ER via EMS with complaints of Back Pain. charli 14:13 The patient presents with pain that is acute, with no known mechanism of injury. The charli symptoms are located in the low back. Onset: The symptoms/episode began/occurred just prior to arrival, 3 day(s) ago. The pain does not radiate. Associated signs and symptoms: The patient has no apparent associated signs or symptoms. The problem was sustained from unknown cause. Modifying factors: The patient symptoms are alleviated by remaining still, the patient symptoms are aggravated by movement. Severity of symptoms: At their worst the symptoms were moderate, in the emergency department the symptoms are unchanged. The patient has not experienced similar symptoms in the past. 14:24 The problem was sustained pt stated inability to urinate, difficulty with bowels. charli Historical: - Allergies: 13:47 NKA; iw - PMHx: 13:47 Back pain; Hypertension; iw - PSHx: 13:47 back sx; iw - Immunization history:: Adult Immunizations up to date. - Family history:: not pertinent. - Social history:: Smoking status: unknown. ROS: 14:13 Constitutional: Negative for fever, chills, and weight loss, Eyes: Negative for injury, charli pain, redness, and discharge, ENT: Negative for injury, pain, and discharge, Neck: Negative for injury, pain, and swelling, Cardiovascular: Negative for chest pain, palpitations, and edema, Respiratory: Negative for shortness of breath, cough, wheezing, and pleuritic chest pain, Abdomen/GI: Negative for abdominal pain, nausea, vomiting, diarrhea, and constipation, : Negative for injury, bleeding, discharge, and swelling, MS/Extremity: Negative for injury and deformity, Skin: Negative for injury, rash, and discoloration, Neuro: Negative for headache, weakness, numbness, tingling, and seizure. 14:13 Back: Positive for decreased range of motion, pain at rest. Exam: 14:13 Constitutional: This is a well developed, well nourished patient who is awake, alert, charli and in no acute distress. Head/Face: Normocephalic, atraumatic. Eyes: Pupils equal round and reactive to light, extra-ocular motions intact. Lids and lashes normal. Conjunctiva and sclera are non-icteric and not injected. Cornea within normal limits. Periorbital areas with no swelling, redness, or edema. ENT: Nares patent. No nasal discharge, no septal abnormalities noted. Tympanic membranes are normal and external auditory canals are clear. Oropharynx with no redness, swelling, or masses, exudates, or evidence of obstruction, uvula midline. Mucous membranes moist. Neck: Trachea midline, no thyromegaly or masses palpated, and no cervical lymphadenopathy. Supple, full range of motion without nuchal rigidity, or vertebral point tenderness. No Meningismus. Chest/axilla: Normal chest wall appearance and motion. Nontender with no deformity. No lesions are appreciated. Cardiovascular: Regular rate and rhythm with a normal S1 and S2. No gallops, murmurs, or rubs. Normal PMI, no JVD. No pulse deficits. Respiratory: Lungs have equal breath sounds bilaterally, clear to auscultation and percussion. No rales, rhonchi or wheezes noted. No increased work of breathing, no retractions or nasal flaring. Abdomen/GI: Soft, non-tender, with normal bowel sounds. No distension or tympany. No guarding or rebound. No evidence of tenderness throughout. Male : Normal genitalia with no discharge or lesions. Skin: Warm, dry with normal turgor. Normal color with no rashes, no lesions, and no evidence of cellulitis. MS/ Extremity: Pulses equal, no cyanosis. Neurovascular intact. Full, normal range of motion. Neuro: Awake and alert, GCS 15, oriented to person, place, time, and situation. Cranial nerves II-XII grossly intact. Motor strength 5/5 in all extremities. Sensory grossly intact. Cerebellar exam normal. Normal gait. Psych: Awake, alert, with orientation to person, place and time. Behavior, mood, and affect are within normal limits. 14:13 Back: pain, that is moderate, ROM is painful, kyphosis, CVA tenderness, is absent, muscle spasm, is appreciated in the left low back, left mid back, right mid back and right low back. Vital Signs: 13:46 BP 132 / 98; Pulse 97; Resp 16; Temp 98.7; Pulse Ox 99% on R/A; iw 14:30 BP 131 / 89; Pulse 91; Resp 16; Pulse Ox 98% on R/A; vc 16:12 BP 136 / 92; Pulse 90; Resp 17; Pulse Ox 98% on R/A; vc MDM: 13:32 Patient medically screened. charli 14:18 Differential diagnosis: Fatigue ruptured disc, spinal injury, sprain. Data interpreted: [facility] lunchroom monitor: not applicable for this patient encounter. rate is 97 beats/min, rhythm is regular, Pulse oximetry: on room air is 99 %. Test interpretation: by ED physician or midlevel provider: old studies, none. Counseling: I had a detailed discussion with the patient and/or guardian regarding: the historical points, exam findings, and any diagnostic results supporting the discharge/admit diagnosis, radiology results, the need for outpatient follow up, for definitive care, a orthopedic surgeon. 14:21 Data reviewed: vital signs, nurses notes, lab test result(s). [facility] 14:27 ED course: pt co of inability to urinate, difficultly with stools, hx of L3 burst charli fracture. 16:24 Medication response: Toradol partially relieved the patient's pain. charli 16:25 ED course: no acute neurosurgical emergency identified. ED course: all results charli explained to the patient. 01/16 16:28 Order name: Urine Dipstick--Ancillary (enter results) 01/16 14:13 Order name: Urine Dipstick-Ancillary (obtain specimen); Complete Time: 16:14 [facility] 01/16 14:23 Order name: MRI Lumbar Spine wo Con; Complete Time: 16:12 [facility] 01/16 14:27 Order name: Bladder Scanner: post residual; Complete Time: 14:46 [facility] Administered Medications: 14:50 Drug: TORadol 60 mg Route: IM; Site: right ventrogluteal; vc 15:10 Follow up: Response: No adverse reaction iw Disposition: 01/17/20 16:19 Discharged to Home. Impression: Low back pain, Other chronic pain. - Condition is Stable. - Discharge Instructions: Back Pain, Adult, Chronic Back Pain, Chronic Pain, Musculoskeletal Pain, Back Pain, Adult, [id number], Back Exercises, Dbcw-[id number]. - Prescriptions for Ibuprofen 600 mg Oral Tablet - take 1 tablet by ORAL route every 8 hours As needed take with food; 21 tablet. Medrol (Rogelio) 4 mg Oral Tablets, Dose Pack - take 1 tablet by ORAL route as directed - follow package instructions; 1 packet. Cyclobenzaprine 5 mg Oral Tablet - take 1 tablet by ORAL route 3 times per day As needed; 15 tablet. - Medication Reconciliation Form, Thank You Letter, Antibiotic Education, Prescription Opioid Use form. - Follow up: Private Physician; When: 2 - 3 days; Reason: Recheck today's complaints, Continuance of care, Re-evaluation by your physician. - Problem is new. - Symptoms have improved. Signatures: Dispatcher [employer] Marcos Bruno MD MD cha Williams, Irene, RN RN iw Brenda Soliman RN RN vc Corrections: (The following items were deleted from the chart) 16:33 16:19 01/17/2020 16:19 Discharged to Home. Impression: Low back pain; Other chronic vc pain. Condition is Stable. Forms are Medication Reconciliation Form, Thank You Letter, Antibiotic Education, Prescription Opioid Use. Follow up: Private Physician; When: 2 - 3 days; Reason: Recheck today's complaints, Continuance of care, Re-evaluation by your physician. Problem is new. Symptoms have improved. charli
--- NOTE | 2020-01-17 16:20 | ER ---
Nurse's Notes [facility] Name: Ron Wilson Age: 29 yrs Sex: Male : 1990 Arrival Date: 01/17/2020 Time: 13:31 Bed 7 Private MD: Diagnosis: Low back pain;Other chronic pain Presentation: 01/16 13:32 Chief complaint: [facility] c/o [facility], reports hx of laminectomy iw and bert placement at L2-L5, today he feels like he is "going to lose control of his bowels". Ebola Screen: Patient negative for fever greater than or equal to 101.5 degrees Fahrenheit, and additional compatible Ebola Virus Disease symptoms Patient denies exposure to infectious person. Patient denies travel to an Ebola-affected area in the 21 days before illness onset. No symptoms or risks identified at this time. Initial Sepsis Screen: Does the patient meet any 2 criteria? No. Patient's initial sepsis screen is negative. Does the patient have a suspected source of infection? No. Patient's initial sepsis screen is negative. Risk Assessment: Do you want to hurt yourself or someone else? Patient reports no desire to harm self or others. Onset of symptoms was January 17, 2020. 13:32 Method Of Arrival: EMS: [facility] iw 13:32 Acuity: JENNY 3 iw 14:00 Coronavirus screen: Client denies travel out of the [place] in the last 14 days. At this vc time, the client does not indicate any symptoms associated with coronavirus-19. Historical: - Allergies: 13:47 NKA; iw - PMHx: 13:47 Back pain; Hypertension; iw - PSHx: 13:47 back sx; iw - Immunization history:: Adult Immunizations up to date. - Family history:: not pertinent. - Social history:: Smoking status: unknown. Screenin:53 Abuse screen: Denies threats or abuse. Denies injuries from another. Nutritional iw screening: No deficits noted. Tuberculosis screening: No symptoms or risk factors identified. Fall Risk None identified. Assessment: 13:52 General: Appears in no apparent distress. Behavior is calm, cooperative. Pain: iw Complains of pain in thoracic area. Neuro: Level of Consciousness is awake, alert, obeys commands, Oriented to person, place, time, situation, Moves all extremities. Neuro: Denies weakness in right leg and left leg paresthesias in right leg and left leg numbness in right leg and left leg. Cardiovascular: Patient's skin is warm and dry. Respiratory: Respiratory effort is even, unlabored, Respiratory pattern is regular. GI: Abdomen is flat, non-distended. Derm: Skin is intact, is healthy with good turgor. Musculoskeletal: Reports pain in back. 14:00 Reassessment: Patient appears in no apparent distress at this time. Patient is alert, vc oriented x 3, equal unlabored respirations, skin warm/dry/pink. Patient is alert/active/playful, equal unlabored respirations, skin warm/dry/pink. 15:00 Reassessment: Patient appears in no apparent distress at this time. Patient is alert, vc oriented x 3, equal unlabored respirations, skin warm/dry/pink. Patient is alert/active/playful, equal unlabored respirations, skin warm/dry/pink. 16:00 Reassessment: pt ambulatory to bathroom, small amount of urine obtained. iw Vital Signs: 13:46 BP 132 / 98; Pulse 97; Resp 16; Temp 98.7; Pulse Ox 99% on R/A; iw 14:30 BP 131 / 89; Pulse 91; Resp 16; Pulse Ox 98% on R/A; vc 16:12 BP 136 / 92; Pulse 90; Resp 17; Pulse Ox 98% on R/A; vc ED Course: 13:31 Patient arrived in ED. iw 13:32 Helga Haile, RN is Primary Nurse. iw 13:32 Marcos Jamil MD is Attending Physician. charli 13:33 Triage completed. iw 14:00 Arm band placed on. vc 14:00 Patient has correct armband on for positive identification. Pulse ox on. NIBP on. vc 15:21 MRI Lumbar Spine wo Con In Process Unspecified. EDMS 16:32 No provider procedures requiring assistance completed. Patient did not have IV access vc during this emergency room visit. Administered Medications: 14:50 Drug: TORadol 60 mg Route: IM; Site: right ventrogluteal; vc 15:10 Follow up: Response: No adverse reaction iw Outcome: 16:19 Discharge ordered by . charli 16:32 Discharged to home ambulatory. vc 16:32 Condition: good 16:32 Discharge instructions given to patient, Instructed on discharge instructions, follow up and referral plans. no drinking with medication, no driving heavy equipment, medication usage, Demonstrated understanding of instructions, follow-up care, medications, Prescriptions given X 3. 16:33 Patient left the ED. vc Signatures: Dispatcher [employer] Marcos Bruno MD MD cha Williams, Irene, RN RN iw Calcote, Vanessa, RN RN vc
[2020-01-17 16:38] VITALS: TEMP 98.7
[2020-01-17 16:39] VITALS: O2SAT 98
[2020-01-17 16:41] VITALS: BP 136/92
[2020-01-17 17:19] LABS: Urine Blood NEGATIVE (NEG); Urine Glucose NEGATIVE (NEG); Urine Protein NEGATIVE (NEG); Urine pH 8.5 (5.0-7.0)
== END 2020-01-17 16:33 | disposition home or self-care (01) ==
LOC: ER 13:31
DX: G89.29 Other chronic pain (principal); I10 Essential (primary) hypertension
CPT/HCPCS: 72148; 81003; 96372; 99284